=== PATIENT | male | born 1955 | race Two or more races ===

== ENCOUNTER 2024-09-23 07:46 | Day surgery (SDC) | payer OTHER ==
[2024-09-22 09:56] LABS: INR 1.33; PARTIAL THROMBOPLASTIN TIME 28.8 SECONDS (22.0-34.0); PROTHROMBIN TIME 14.2 SECONDS (9.0-11.5)
[~2024-09-23 07:46] MED LIST: ATACAND HCT 321 EAC1 PO; EXELON1 EAC1 TD; FINASTERIDE5 MG PO; GRALISE600 MG PO; HYZAAR 100-251 UDTAB PO; NEXIUM20 MG/PACK PO; ROSUVASTATIN CA20 MG PO; TAMS0.4C PO; TRAZODONE HCL100 MG PO; VELCADE3.5 MG/VIA IV; VERAPAMIL HCL180 M1 PO; XARELTO20 MG PO; ZOVIRAX400 MG PO; [UNRECOGNIZED DRUG - OTHER]
[2024-09-23] MEDS ORDERED: LIDOCAINE HCL 1%/EPINEPHRINE 20ML VIAL IJ ONE (09:02)
[2024-09-23] MEDS ORDERED: HEPARIN SODIUM,PORCINE/PF 100 UNIT/ML SYRINGE IV ONE (09:02)
[2024-09-23] MEDS ORDERED: BUPIVACAINE HCL/MPF 0.5% 30ML VIAL ONE (09:02)
[2024-09-23] MEDS ORDERED: CEFAZOLIN SODIUM 1,000 MG VIAL IV ONE (09:45)
== END 2024-09-23 11:45 | disposition home or self-care (01) ==
LOC: CIR.AMB 07:46
PROVIDERS: ATTEND Colon & Rectal Surgery
DX: C90.00 Multiple myeloma not having achieved remission (principal); I10 Essential (primary) hypertension; E78.5 Hyperlipidemia, unspecified; G47.00 Insomnia, unspecified; Z88.6 Allergy status to analgesic agent
CPT/HCPCS: 36561; C1751

== ENCOUNTER 2024-09-25 14:14 | Inpatient (IN) | payer OTHER ==
[~2024-09-25] VITALS: Ht 172.7 cm; Wt 111.1 kg
[2024-09-25] MEDS ORDERED: 0.9 % SODIUM CHLORIDE 1,000 ML IV SCH (14:45)
[2024-09-25] MEDS ORDERED: DEXTROSE 5 % AND 0.9 % NACL 1,000 ML IV SCH (15:15)
[2024-09-25] MEDS ORDERED: PANTOPRAZOLE SODIUM 40 MG/VIAL VIAL IV SCH (15:20)
[2024-09-25 15:30] LABS: MEAN CELL VOLUME 91.8 fL (80.0-100.00); MEAN CORPUSCULAR HEMOGLOBIN 31.2 pg (27.00-32.0); PLATELET COUNT 118 K/uL (150-450); RED CELL DISTRIBUTION WIDTH 19.6 % (11.5-14.5)
[2024-09-25 15:31] LABS: HEMATOCRIT 22.1 % (39.0-48.0); HEMOGLOBIN 7.5 g/dL (13-16.00)
[2024-09-25] MEDS ORDERED: FUROsemide 20 MG/2 ML VIAL IV SCH (15:45)
[2024-09-25 15:46] LABS: INR 1.29; PARTIAL THROMBOPLASTIN TIME 31.1 SECONDS (22.0-34.0); PROTHROMBIN TIME 13.8 SECONDS (9.0-11.5)
[2024-09-25 15:56] LABS: BILIRUBIN TOTAL 0.77 mg/dL (0.3-1.2); CALCIUM 9.2 mg/dL (8.5-10.1); CREATININE SERUM 1.95 mg/dL (0.70-1.30); GFR 34.18; GLOBULINA 3.8 G/DL (2.4-3.5); POTASSIUM 3.59 mEq/L (3.5-5.1); TOTAL PROTEIN 5.8 gm/dL (6.4-8.2)
[2024-09-25] MEDS ORDERED: hydrALAZINE HCL 20 MG VIAL IV PRN (16:00)
[2024-09-25 16:03] VITALS: BP 100/55
[2024-09-25] MEDS ORDERED: PIPERACILLIN/TAZOBACTAM SODIUM 2.25 GM in DEXTROSE 5 % IN WATER 50 ML IV SCH (17:00)
[2024-09-25 17:05] LABS: URINE APPEARANCE Cloudy; URINE BILIRRUBIN Negative (NEGATIVE); URINE BLOOD Negative; URINE COLOR Yellow; URINE GLUCOSE Negative (NEGATIVE); URINE KETONE Negative (NEGATIVE); URINE LEUKOCYTE Negative; URINE NITRATE Negative; URINE PROTEIN 30 (NEGATIVE); URINE UROBILINOGEN 0.2 E.U./dl
[2024-09-25 17:08] LABS: URINE BACTERIA 411.2 uL (0.0-1933); URINE CAST 2.65 uL (0.0-1.40); URINE EPITHELIAL CELLS 10.2 uL (0.0-38.8); URINE RBC 15.9 uL (0.0-20.8); URINE WBC 14.8 uL (0.0-23.2)
[2024-09-25 17:34] LABS: URINE CRYSTALS FEW /HPF
[2024-09-25 18:33] VITALS: BP 142/79; O2SAT 92
[2024-09-25] MEDS ORDERED: DOXYCYCLINE HYCLATE 100MG IV ONE (20:56)
[2024-09-25] MEDS ORDERED: DOXYCYCLINE HYCLATE 100MG IV SCH (21:00)
[2024-09-26 01:05] VITALS: BP 112/70; O2SAT 96
[2024-09-26] MEDS ORDERED: DOXYCYCLINE HYCLATE 100MG IV ONE ×2 (06:42→15:42)
[2024-09-26 07:48] LABS: MEAN CELL VOLUME 91.7 fL (80.0-100.00); MEAN CORPUSCULAR HGB CONC 33.3 g/dl (32.0-36.0); PLATELET COUNT 146 K/uL (150-450); RED BLOOD COUNT 2.38 M/uL (4.00-6.00); RED CELL DISTRIBUTION WIDTH 19.5 % (11.5-14.5)
[2024-09-26 07:56] LABS: ALBUMIN 1.9 gm/dL (3.4-5.0); BILIRUBIN TOTAL 0.77 mg/dL (0.3-1.2); CALCIUM 8.6 mg/dL (8.5-10.1); CREATININE SERUM 1.76 mg/dL (0.70-1.30); GFR 38.47; GLOBULINA 2.9 G/DL (2.4-3.5); POTASSIUM 3.67 mEq/L (3.5-5.1); TOTAL PROTEIN 4.8 gm/dL (6.4-8.2)
[2024-09-26 07:59] LABS: HEMATOCRIT 21.8 % (39.0-48.0); HEMOGLOBIN 7.3 g/dL (13-16.00); MEAN CORPUSCULAR HEMOGLOBIN 30.6 pg (27.00-32.0)
[2024-09-26 08:00] VITALS: BP 122/60; O2SAT 95
[2024-09-26] MEDS ORDERED: ACETAMINOPHEN 500 MG GEL..CAP PO PRN (08:00)
[2024-09-26] MEDS ORDERED: RIVAROXABAN 20 MG TABLET PO SCH (09:00)
[2024-09-26] MEDS ORDERED: FINASTERIDE 5 MG TABLET PO SCH (09:00)
[2024-09-26] MEDS ORDERED: FLUOXETINE HCL 20 MG CAPSULE PO SCH ×2 (09:00→21:00)
[2024-09-26] MEDS ORDERED: VERAPAMIL HCL 240 MG TABLET.SA PO SCH ×2 (09:00→21:45)
[2024-09-26] MEDS ORDERED: PATIENTS OWN MEDICATION (MEDICAMENTO EN PISO) TOP SCH (09:00)
[2024-09-26] MEDS ORDERED: DIPHENHYDRAMINE HCL 50 MG/ML VIAL 1ML IV SCH (12:30)
[2024-09-26] MEDS ORDERED: METHYLPREDNISOLONE SOD SUCC 125 MG VIAL IV SCH (12:30)
[2024-09-26 16:27] VITALS: BP 149/65; O2SAT 100
[2024-09-26] MEDS ORDERED: MEGESTROL ACETATE 400 MG/10 ML BLIST PACK PO SCH (17:00)
[2024-09-26] MEDS ORDERED: AMINO ACIDS 1 EACH TABLET PO SCH (17:00)
[2024-09-26] MEDS ORDERED: ZOLPIDEM TARTRATE 10 MG TABLET PO SCH (21:00)
[2024-09-27 00:42] VITALS: BP 111/63; O2SAT 97
[2024-09-27] MEDS ORDERED: DOXYCYCLINE HYCLATE 100MG IV ONE ×2 (06:38→15:05)
[2024-09-27 08:00] VITALS: BP 117/67; O2SAT 95
[2024-09-27] MEDS ORDERED: CANDESARTAN CILEXETIL 32 MG TABLET PO SCH (09:00)
[2024-09-27] MEDS ORDERED: CRESTOR 20 MG PO SCH (09:00)
[2024-09-27] MEDS ORDERED: HYDROCHLOROTHIAZIDE 12.5 MG CAPSULE PO SCH (09:00)
[2024-09-27] MEDS ORDERED: TAMSULOSIN HCL 0.4 MG CAP PO SCH (09:00)
[2024-09-27 09:58] LABS: HEMATOCRIT 32.5 % (39.0-48.0); HEMOGLOBIN 10.8 g/dL (13-16.00); MEAN CELL VOLUME 90.3 fL (80.0-100.00); MEAN CORPUSCULAR HGB CONC 33.2 g/dl (32.0-36.0); PLATELET COUNT 146 K/uL (150-450); RED CELL DISTRIBUTION WIDTH 18.7 % (11.5-14.5)
[2024-09-27] MEDS ORDERED: HYDROCHLOROTHIAZIDE PO SCH (10:00)
[2024-09-27] MEDS ORDERED: CANDESARTAN PO SCH (10:00)
[2024-09-27 10:35] LABS: CALCIUM 8.7 mg/dL (8.5-10.1); CREATININE SERUM 1.79 mg/dL (0.70-1.30); GFR 37.73; PHOSPHOROUS 3.8 mg/dL (2.5-4.9); POTASSIUM 3.7 mEq/L (3.5-5.1)
[2024-09-27 16:27] VITALS: BP 107/63; O2SAT 100
[2024-09-27] MEDS ORDERED: RIVAROXABAN 20 MG TABLET PO SCH (21:00)
[2024-09-27 21:47] VITALS: O2SAT 100
[2024-09-28 00:45] VITALS: BP 113/51; O2SAT 95
[2024-09-28] MEDS ORDERED: DOXYCYCLINE HYCLATE 100MG IV ONE ×2 (06:52→14:17)
[2024-09-28 08:00] VITALS: BP 139/77; O2SAT 97
[2024-09-28 16:00] VITALS: BP 123/73; O2SAT 94
[2024-09-28] MEDS ORDERED: PIPERACILLIN/TAZOBACTAM SODIUM 2.25 GM in DEXTROSE 5 % IN WATER 50 ML IV SCH (18:00)
[2024-09-28] MEDS ORDERED: TRAZODONE HCL 50 MG TABLET PO SCH (21:00)
[2024-09-28] MEDS ORDERED: GABAPENTIN 600 MG TABLET PO SCH (21:00)
[2024-09-29 02:00] VITALS: BP 111/70; O2SAT 94
[2024-09-29 05:38] LABS: HEMATOCRIT 28.6 % (39.0-48.0); MEAN CELL VOLUME 89.7 fL (80.0-100.00); MEAN CORPUSCULAR HEMOGLOBIN 30.4 pg (27.00-32.0); MEAN CORPUSCULAR HGB CONC 33.9 g/dl (32.0-36.0); PLATELET COUNT 167 K/uL (150-450); RED BLOOD COUNT 3.19 M/uL (4.00-6.00)
[2024-09-29 05:40] LABS: HEMOGLOBIN 9.7 g/dL (13-16.00)
[2024-09-29 05:46] LABS: ERYTHROCYTE SEDIMENTATION RATE 116 mm/hr
[2024-09-29 06:34] LABS: ALBUMIN 1.9 gm/dL (3.4-5.0); BILIRUBIN TOTAL 0.7 mg/dL (0.3-1.2); CALCIUM 8.3 mg/dL (8.5-10.1); CREATININE SERUM 1.54 mg/dL (0.70-1.30); GFR 44.88; MAGNESIUM 1.8 mg/dL (1.8-2.4); PHOSPHOROUS 2.3 mg/dL (2.5-4.9); POTASSIUM 3.62 mEq/L (3.5-5.1); TOTAL PROTEIN 4.9 gm/dL (6.4-8.2)
[2024-09-29 06:36] LABS: C-REACTIVE PROTEIN 7.46 MG/DL (0.00-0.29)
[2024-09-29 08:00] VITALS: BP 145/71; O2SAT 96
[2024-09-29] MEDS ORDERED: DOXYCYCLINE HYCLATE 100MG IV ONE ×2 (08:12→16:01)
[2024-09-29] MEDS ORDERED: PANTOPRAZOLE SODIUM 40 MG TABLET.DR PO SCH (09:00)
[2024-09-29 09:32] LABS: PROCALCITONIN 1.75 ng/ml (0.020-0.080)
[2024-09-29 10:03] LABS: CORTISOL 4.68 ug/dl
[2024-09-29 16:22] VITALS: BP 146/74; O2SAT 95
[2024-09-30] MEDS ORDERED: DOXYCYCLINE HYCLATE 100MG IV ONE ×2 (06:18→14:54)
[2024-09-30 07:26] LABS: HEMATOCRIT 29.4 % (39.0-48.0); HEMOGLOBIN 9.8 g/dL (13-16.00); MEAN CELL VOLUME 90.7 fL (80.0-100.00); MEAN CORPUSCULAR HEMOGLOBIN 30.3 pg (27.00-32.0); MEAN CORPUSCULAR HGB CONC 33.4 g/dl (32.0-36.0); PLATELET COUNT 167 K/uL (150-450); RED BLOOD COUNT 3.24 M/uL (4.00-6.00); RED CELL DISTRIBUTION WIDTH 18.7 % (11.5-14.5)
[2024-09-30 08:00] VITALS: BP 132/66; O2SAT 95
[2024-09-30 08:00] LABS: ALBUMIN 1.9 gm/dL (3.4-5.0); BILIRUBIN TOTAL 1.03 mg/dL (0.3-1.2); CALCIUM 8.9 mg/dL (8.5-10.1); CREATININE SERUM 1.39 mg/dL (0.70-1.30); GFR 50.52; GLOBULINA 3.1 G/DL (2.4-3.5); MAGNESIUM 1.8 mg/dL (1.8-2.4); POTASSIUM 4.15 mEq/L (3.5-5.1)
[2024-09-30] MEDS ORDERED: COSYNTROPIN 0.25 MG VIAL IV ONE (11:00)
[2024-09-30] MEDS ORDERED: fentaNYL CITRATE 50 MCG/ML AMPUL IV PUSH ONE (15:45)
[2024-09-30 16:00] VITALS: BP 136/66; O2SAT 98
[2024-10-01] VITALS: BP 118/73; O2SAT 95
[2024-10-01] MEDS ORDERED: DOXYCYCLINE HYCLATE 100MG IV ONE ×2 (07:14→21:33)
[2024-10-01 08:00] VITALS: BP 144/79; O2SAT 97
[2024-10-01] MEDS ORDERED: FUROsemide 20 MG/2 ML VIAL IV SCH (17:00)
[2024-10-01] MEDS ORDERED: ALBUMIN HUMAN 100 ML VIAL IV SCH (17:00)
[2024-10-01] MEDS ORDERED: fentaNYL CITRATE 50 MCG/ML AMPUL IV PUSH ONE (18:15)
[2024-10-01 19:45] VITALS: BP 127/66; O2SAT 94
[2024-10-02 00:41] VITALS: BP 148/81; O2SAT 94
[2024-10-02 06:40] LABS: HEMATOCRIT 29.4 % (39.0-48.0); HEMOGLOBIN 9.9 g/dL (13-16.00); MEAN CELL VOLUME 90.2 fL (80.0-100.00); MEAN CORPUSCULAR HEMOGLOBIN 30.4 pg (27.00-32.0); MEAN CORPUSCULAR HGB CONC 33.7 g/dl (32.0-36.0); PLATELET COUNT 173 K/uL (150-450); RED BLOOD COUNT 3.25 M/uL (4.00-6.00); RED CELL DISTRIBUTION WIDTH 20.3 % (11.5-14.5)
[2024-10-02 07:14] LABS: ALBUMIN 2.7 gm/dL (3.4-5.0); BILIRUBIN TOTAL 1.26 mg/dL (0.3-1.2); CALCIUM 9.2 mg/dL (8.5-10.1); CREATININE SERUM 1.35 mg/dL (0.70-1.30); GFR 52.25; GLOBULINA 2.8 G/DL (2.4-3.5); MAGNESIUM 1.8 mg/dL (1.8-2.4); PHOSPHOROUS 2.2 mg/dL (2.5-4.9); POTASSIUM 4.41 mEq/L (3.5-5.1); TOTAL PROTEIN 5.5 gm/dL (6.4-8.2); URIC ACID 5.3 mg/dL (3.5-8.5)
[2024-10-02] MEDS ORDERED: DOXYCYCLINE HYCLATE 100MG IV ONE ×2 (07:38→16:29)
[2024-10-02 08:00] VITALS: BP 151/69; O2SAT 94
[2024-10-02 16:00] VITALS: BP 127/71; O2SAT 96
[2024-10-02 20:51] LABS: TP PLEURAL FLUID 2.6 g/dl
[2024-10-02 21:06] LABS: PLEURAL FLUID APPEARANCE CLOUDY; PLEURAL FLUID COLOR XANTHOCROMIC
[2024-10-02 21:07] LABS: MONONUCLEAR 28 %; POLYMORPHONUCLEAR 72 %
[2024-10-03 01:49] VITALS: BP 146/77; O2SAT 91
[2024-10-03 08:00] VITALS: BP 144/73; O2SAT 97
[2024-10-03 16:00] VITALS: BP 126/71; O2SAT 96
[2024-10-03] MEDS ORDERED: MORPHINE SULFATE 4 MG/ML VIAL IV PRN (20:00)
[2024-10-04] VITALS: BP 138/72; O2SAT 94
[2024-10-04 07:38] LABS: HEMATOCRIT 26.6 % (39.0-48.0); HEMOGLOBIN 9.2 g/dL (13-16.00); MEAN CELL VOLUME 89.1 fL (80.0-100.00); MEAN CORPUSCULAR HEMOGLOBIN 30.8 pg (27.00-32.0); MEAN CORPUSCULAR HGB CONC 34.5 g/dl (32.0-36.0); PLATELET COUNT 158 K/uL (150-450); RED BLOOD COUNT 2.99 M/uL (4.00-6.00); RED CELL DISTRIBUTION WIDTH 19.6 % (11.5-14.5)
[2024-10-04 08:00] VITALS: BP 121/64; O2SAT 95
[2024-10-04 08:12] LABS: CALCIUM 8.9 mg/dL (8.5-10.1); CREATININE SERUM 1.43 mg/dL (0.70-1.30); GFR 48.89; MAGNESIUM 1.5 mg/dL (1.8-2.4); POTASSIUM 3.51 mEq/L (3.5-5.1)
[2024-10-04] MEDS ORDERED: MAGNESIUM SULFATE IN WATER 4 GM/100 ML PIGGYBACK IV NR (09:30)
[2024-10-04] MEDS ORDERED: POTASSIUM PHOS,M-BASIC-D-BASIC 3 MM/ML VIAL IV ONE (12:00)
[2024-10-04 16:00] VITALS: BP 123/77; O2SAT 96
[2024-10-05] VITALS: BP 97/55; O2SAT 93
[2024-10-05 16:00] VITALS: BP 136/77; O2SAT 95
[2024-10-05] MEDS ORDERED: MORPHINE SULFATE 2 MG/ML CARTRIDGE IV PRN (22:00)
[2024-10-06] VITALS: BP 155/83; O2SAT 92
[2024-10-06 08:37] VITALS: BP 120/74; O2SAT 95
[2024-10-06] MEDS ORDERED: fentaNYL CITRATE 50 MCG/ML AMPUL IV PUSH ONE (15:45)
[2024-10-06 17:48] VITALS: BP 133/77; O2SAT 95
[2024-10-06 23:59] VITALS: BP 123/76; O2SAT 95
[2024-10-07 08:00] VITALS: BP 121/63; O2SAT 94
[2024-10-07] MEDS ORDERED: PRE PROTEIN1 EACH PO (12:49)
[2024-10-07] MEDS ORDERED: PROZAC20 MG PO (12:49)
[2024-10-07] MEDS ORDERED: ATACAND HCT 321 EAC1 PO (12:49)
[2024-10-07] MEDS ORDERED: NEURONTIN600 MG PO (12:49)
[2024-10-07] MEDS ORDERED: FINASTERIDE5 MG PO (12:49)
[2024-10-07] MEDS ORDERED: EXELON1 EAC2 TD (12:49)
[2024-10-07] MEDS ORDERED: TRAZODONE HCL50 MG PO (12:49)
[2024-10-07] MEDS ORDERED: XARELTO20 MG PO (12:49)
[2024-10-07] MEDS ORDERED: ROSUVASTATIN CA20 MG PO (12:49)
[2024-10-07] MEDS ORDERED: VERAPAMIL ER240 MG PO (12:49)
[2024-10-07] MEDS ORDERED: TAMS0.4C PO (12:49)
== END 2024-10-07 19:21 | disposition home or self-care (01) | DRG 872 ==
LOC: ER 14:14 → SURH 17:05 → MEDJ 17:05 → SURH 17:57
PROVIDERS: Emergency Medicine; Internal Medicine; Internal Medicine Infectious Disease; Radiology Vascular & Interventional Radiology; ADMIT Internal Medicine Geriatric Medicine; ATTEND Internal Medicine Geriatric Medicine
PROC: 30233N1 Transfusion of Nonautologous Red Blood Cells into Peripheral Vein, Percutaneous Approach (ICD-10-PCS; 2024-09-26)
PROC: 4A12X4Z Monitoring of Cardiac Electrical Activity, External Approach (ICD-10-PCS; 2024-09-27)
PROC: BB24YZZ Computerized Tomography (CT Scan) of Bilateral Lungs using Other Contrast (ICD-10-PCS; 2024-09-28)
PROC: BW21YZZ Computerized Tomography (CT Scan) of Abdomen and Pelvis using Other Contrast (ICD-10-PCS; 2024-09-29)
PROC: 0FB13ZX Excision of Right Lobe Liver, Percutaneous Approach, Diagnostic (ICD-10-PCS; principal; 2024-10-01)
PROC: 0W993ZZ Drainage of Right Pleural Cavity, Percutaneous Approach (ICD-10-PCS; 2024-10-02)
PROC: 0FB13ZX Excision of Right Lobe Liver, Percutaneous Approach, Diagnostic (ICD-10-PCS; 2024-10-06)
DX: A41.9 Sepsis, unspecified organism (principal); C78.7 Secondary malignant neoplasm of liver and intrahepatic bile duct; C90.00 Multiple myeloma not having achieved remission; D84.89 Other immunodeficiencies; E27.3 Drug-induced adrenocortical insufficiency; J90 Pleural effusion, not elsewhere classified; J98.11 Atelectasis; D68.69 Other thrombophilia; D64.89 Other specified anemias; D63.0 Anemia in neoplastic disease; E86.0 Dehydration; N28.9 Disorder of kidney and ureter, unspecified; E88.09 Other disorders of plasma-protein metabolism, not elsewhere classified; R41.82 Altered mental status, unspecified; I10 Essential (primary) hypertension; G47.30 Sleep apnea, unspecified; E78.5 Hyperlipidemia, unspecified; Z88.6 Allergy status to analgesic agent; Z92.21 Personal history of antineoplastic chemotherapy; Z92.25 Personal history of immunosuppression therapy